=== PATIENT | female | born 1980 | race Caucasian/White ===

== ENCOUNTER 2019-01-27 08:29 | Day surgery (SDC) | payer MEDICAID ==
[2019-01-19 11:06] LABS: BASOPHILS # (AUTO) 0.1 X10'3 (0-0.2); BASOPHILS % (AUTO) 0.7 % (0-1); EOSINOPHILS # (AUTO) 0.2 X10'3 (0-0.9); EOSINOPHILS % (AUTO) 3.2 % (0-6); LYMPHOCYTES # (AUTO) 2.4 X10'3 (1.1-4.8); LYMPHOCYTES % (AUTO) 30.9 % (21-51); MEAN CORPUSCULAR HEMOGLOBIN 30.1 PG (27.0-31.0); MEAN CORPUSCULAR HGB CONC 33.8 g/dL (33.0-36.5); MEAN PLATELET VOLUME 8.4 FL (7.4-10.4); MONOCYTES # (AUTO) 0.6 X10'3 (0-0.9); MONOCYTES % (AUTO) 7.5 % (2-12); NEUTROPHILS # (AUTO) 4.5 X10'3 (1.8-7.7); NEUTROPHILS % (AUTO) 57.7 % (42-75); PRE OP HEMATOCRIT 39.9 % (35.0-45.0); PRE OP HEMOGLOBIN 13.5 g/dL (12.0-16.0); PRE OP PLATELET COUNT 296 X10'3 (140-440); RED BLOOD COUNT 4.48 X10'6 (4.20-5.60); RED CELL DISTRIBUTION WIDTH 13.9 % (11.5-14.5)
[2019-01-19 11:11] LABS: ALBUMIN 3.6 G/DL (3.4-5.0); ALBUMIN/GLOBULIN RATIO 0.8 (1.1-1.5); ALKALINE PHOSPHATASE 98 IU/L (46-116); BLOOD UREA NITROGEN 12 MG/DL (7-18); BUN/CREATININE RATIO 12.5 (6.6-38.0); CALCIUM 9.1 MG/DL (8.5-10.1); CHLORIDE 104 MMOL/L (99-107); CREATININE 0.96 MG/DL (0.40-0.90); PRE OP ALT 24 U/L (30-65); PRE OP ANION GAP 6 (8-16); PRE OP AST 12 U/L (10-37); PRE OP BILIRUB, TOTAL 0.7 MG/DL (0.0-1.0); PRE OP GLUCOSE 99 MG/DL (70-104); PRE OP INR 0.9 INR; PRE OP POTASSIUM 4.2 MMOL/L (3.4-5.1); PRE OP SODIUM 139 MMOL/L (135-145); TOTAL CARBON DIOXIDE 29.3 MMOL/L (24-32); TOTAL PROTEIN 7.9 G/DL (6.4-8.2); eGFR 64 ML/MIN
[~2019-01-27] VITALS: Ht 172.7 cm; Wt 126.5 kg
[2019-01-27] VITALS (13 sets, daily range): BP systolic 75–128; BP diastolic 47–67
[~2019-01-27 08:29] MED LIST: ALBU8.5H8 IH; BACL20TA PO; DIPH25CA83 PO; GABA600T13 PO; HYDR-3964 PO; LORA10TA7 PO; MONT10TA24 PO; albuterol 2.5 MG/3 ML nebule NEB ONE; ceFAZolin 1GM/D5W- ADD-VANTAGE 50 ML IV ONE; cefazolin/dext.iso 2gm/100ml 100 ML IV ONE; famotidine 20mg tablet PO ONE; ringers solution, lacted 1,000 ML IV SCH; vancomycin inj 1,500 MG in normal saline 300ml IV soln IV ONE
[2019-01-27] MEDS ORDERED: hydrALAZINE 20mg/ml inj. IV PRN (08:50)
[2019-01-27] MEDS ORDERED: labetalol 20mg/4ml (5mg/ml) syringe IV PRN (08:50)
[2019-01-27] MEDS ORDERED: fentaNYL/PF 50MCG/1 ML 2ML syringe IV PRN ×2 (08:50)
[2019-01-27] MEDS ORDERED: ondansetron/PF 4mg/2ml inj IV PRN (08:50)
[2019-01-27] MEDS ORDERED: morphine 4 MG/ML inj SYRINge IV PRN ×2 (08:50)
[2019-01-27] MEDS ORDERED: ringers solution, lacted 1,000 ML IV SCH (08:50)
--- NOTE | 2019-01-27 08:50 | NUR ---
DUE TO PREVIOUS CASE CX PT NEEDED TO BE READY TO GO TO THE OR LET[facility]. OR NURSE LOOKED FOR IV ACCESS DID NOT SEE DECENT VEIN. DR. ANG AWARE AND WANTS TO START IV IN OR ROOM. OR AWARE PT WAS ONLY HERE FOR 15 MIN NO VS DONE EITHER.
[2019-01-27] MEDS ORDERED: dexmedetomidine 200mcg/2ml inj. IV ONE (08:53)
[2019-01-27] MEDS ORDERED: fentaNYL/PF 50MCG/1 ML 2ML syringe ONE (08:54)
[2019-01-27] MEDS ORDERED: LIDOcaine 2% (20mg/ml) 5ml vial ONE (08:55)
[2019-01-27] MEDS ORDERED: midazolam 2 mg/2 ml injection ONE (08:55)
[2019-01-27] MEDS ORDERED: sevoflurane 250ml liquid IH ONE (08:55)
[2019-01-27] MEDS ORDERED: propofol inj 20 ML IV ONE (08:55)
[2019-01-27] MEDS ORDERED: ondansetron/PF 4mg/2ml inj ONE (08:55)
[2019-01-27] MEDS ORDERED: dexamethasone sod phosphate 4mg/ml inj. ONE (08:55)
[2019-01-27] MEDS ORDERED: triamcinolone acetonide 40mg/ml inj ONE (09:19)
--- NOTE | 2019-01-27 10:08 | NUR ---
Received from OR via [facility], accompanied by Anesthesiologist DR WALKER and report given by Anesthesiologist. PT DROWSY, NO S/S OF DISTRESS/DISCOMFORT. RIGHT KNEE W/BIAS TAPE COVERING INCISION CDI. Addendum: 01/27/19 at 1043 by Silvina Tao RN Amended: Links added.
[2019-01-27] MEDS ORDERED: BUPIVAcaine/PF 2.5 mg/ml (0.25%) 30ml vial IJ ONE (10:11)
[2019-01-27] MEDS ORDERED: HYDROcodone/acetaminophen 10/325mg tab PO ONE (11:30)
[2019-01-27] MEDS ORDERED: ketorolac trometh. 30mg/ml inj. IV ONE (11:30)
--- NOTE | 2019-01-27 12:18 | NUR ---
D/C INSTRUCTIONS GIVEN AND GONE OVER W/PT AND PTS [facility] WORKER/FAMILY, BOTH VERBALIZE UNDERSTANDING. PT D/CD TO HOME VIA W/C TO PRIVATE VEHICLE W/O INCIDENT. Addendum: 01/27/19 at 1237 by Silvina Tao RN Amended: Links added.
== END 2019-01-27 12:18 | disposition home or self-care (01) ==
LOC: UNDOADMIN 08:29 → PAS IN 08:29 → PAS 08:29 → EDSTATUS 10:30 → PAS 12:18
PROVIDERS: ATTEND Orthopaedic Surgery
DX: S83.231A Complex tear of medial meniscus, current injury, right knee, initial encounter (principal); S83.281A Other tear of lateral meniscus, current injury, right knee, initial encounter; M94.261 Chondromalacia, right knee; J45.909 Unspecified asthma, uncomplicated; M17.0 Bilateral primary osteoarthritis of knee; Z88.8 Allergy status to other drugs, medicaments and biological substances; G89.4 Chronic pain syndrome; Z79.899 Other long term (current) drug therapy; Z72.89 Other problems related to lifestyle; E66.9 Obesity, unspecified; Z68.41 Body mass index [BMI] 40.0-44.9, adult; Z79.01 Long term (current) use of anticoagulants; X58.XXXA Exposure to other specified factors, initial encounter; Y93.89 Activity, other specified; Y92.89 Other specified places as the place of occurrence of the external cause; Y99.8 Other external cause status
CPT/HCPCS: 29873; 29879; 29880; 36415; 80053; 85025; 85610; 85730; 93005; J0690; J1100; J1885; J2001; J2250; J2405; J2704; J3010; J3301; J3370; J3490; J7120; A4215; A4618; A6250; A6449; A7000